=== PATIENT | female | born 1990 | race Caucasian/White ===

== ENCOUNTER 2017-04-09 21:15 | Emergency (ER) | payer MEDICAID ==
[~2017-04-09] VITALS: Ht 162.6 cm; Wt 62.6 kg
[2017-04-09 21:56] VITALS: BP 107/58
[2017-04-09] MEDS ORDERED: IBUPROFEN 600 MG TAB PO ONE (23:15)
== END 2017-04-09 23:38 | disposition home or self-care (01) ==
LOC: ER 21:22
DX: S93.402A Sprain of unspecified ligament of left ankle, initial encounter (principal); S90.32XA Contusion of left foot, initial encounter; W22.8XXA Striking against or struck by other objects, initial encounter; Y93.89 Activity, other specified; Y99.8 Other external cause status; Y92.89 Other specified places as the place of occurrence of the external cause
CPT/HCPCS: 73610; 73630; 99284; L3260